=== PATIENT | male | born 1945 | race Caucasian/White ===

== ENCOUNTER 2016-10-30 16:43 | Emergency (ER) | payer OTHER ==
[~2016-10-30 16:43] MED LIST: ACETAMINOPHEN PO; ADVAIR DISKU1 INH; ALFUZOSIN HCL E10 MG PO; AMLODIPINE BESY10 MG PO; ASPIRIN 81 LOW81 MG PO; ATENOLOL100 MG PO; ATORVASTATIN CA20 MG PO; CODEINE PO; CYCLOBENZAPRINE10 MG PO; FINASTERIDE5 MG PO; FLOMAX0.4 MG PO; FUROSEMIDE20 MG PO; LEVOFLOXACIN500 MG PO; LISINOPRIL10 MG PO; NEURONTIN300 MG PO; OMEPRAZOLE40 MG PO; PRAZOSIN HCL1 MG PO; PROZAC20 MG PO; SYMBICORT1 AE1; TYLENOL/CODEINE #3 PO; WELLBUTRIN75 MG PO
--- NOTE | 2016-10-30 18:50 | DIAGNOSTIC IMAGING REPORT ---
PROCEDURE: XR CHEST 1 VIEW INDICATION: EPIGASTRIC PAIN TECHNIQUE: Portable AP view (1810 hours). COMPARISON: Compared to chest x-ray and 10/07/2016 and 03/28/2016. FINDINGS: Lungs are clear. Heart is of normal size. Tortuous and ectatic aortic arch and tortuous descending thoracic aorta are unchanged. Moderate degenerate change of the left glenohumeral joint (partially visualized). IMPRESSION: 1. Negative chest.
--- NOTE | 2016-10-30 20:03 | DIAGNOSTIC IMAGING REPORT ---
PROCEDURE: CT HEAD WITHOUT CONTRAST INDICATION: HEADACHE TECHNIQUE: Noncontrast axial images with sagittal and coronal reformations. COMPARISON: None. FINDINGS: Allowing for mild motion, there is moderate old small vessel disease with mild atrophic changes. No evidence of acute process or hemorrhage. Carotid and vertebral vascular calcifications. Sinuses and mastoids are normal. IMPRESSION: 1. Moderate old small vessel disease. 2. Otherwise negative head CT. No evidence of acute process. 3. Findings discussed with Dr. Lc Calderón at [address] scans at this facility use dose modulation, iterative reconstruction, and/or weight-based dosing when appropriate to reduce radiation dose to as low as reasonably achievable.
--- NOTE | 2016-10-30 20:03 | DIAGNOSTIC IMAGING REPORT ---
PROCEDURE: CT CERVICAL SPINE W/O CONTRAST INDICATION: Neck pain. TECHNIQUE: Noncontrast axial images with sagittal and coronal reformations. COMPARISON: Compared to CT cervical spine on 06/23/2013. FINDINGS: C1-2: Mild to moderate degenerative changes. C2-3: Moderately chronically bulging disc with moderate left facet disease results in moderate narrowing the left neural foramen. No change. C3-4: Mildly chronically bulging disc with mild narrowing of the neural foramina. C4-5: Mildly chronically bulging disc and facet disease with mild narrowing of the neural foramina. C5-6: Mild facet disease. C6-7: Mildly chronically bulging disc and facet disease with mild narrowing of the neural foramina. C7-T1: Mild facet disease. Marked calcified atheromatous changes of the carotid bifurcations (no change). IMPRESSION: 1. Moderate degenerative changes cervical spine. 2. No change. No evidence of acute process or fracture. 3. Marked calcified atheromatous changes of the carotid bifurcations. (Previously documented). 4. Findings discussed with Dr. Calderón. All CT scans at this facility use dose modulation, iterative reconstruction, and/or weight-based dosing when appropriate to reduce radiation dose to as low as reasonably achievable.
--- NOTE | 2016-10-30 20:19 | DIAGNOSTIC IMAGING REPORT ---
PROCEDURE: CT ABD/PELVIS WITH CONTRAST INDICATION: Abdominal and epigastric pain. TECHNIQUE: 75 ml of Isovue 300 (one half-dose) were injected intravenously and axial images were obtained of the entire abdomen and pelvis with sagittal and coronal reformations. COMPARISON: Comparison is made to CT abdomen and pelvis on 03/09/2015. FINDINGS: ABDOMEN: Status post aortobifemoral vascular stent for a 5.5 cm abdominal aortic aneurysm (previously 6.2 cm). Gallbladder, liver (stable dystrophic calcification), spleen, pancreas, and kidneys (multiple renal cysts) are normal. There are bilateral adrenal nodules which appears stable (right 3.1 cm, left 2.7 cm). Small hiatal hernia. Bowel pattern is otherwise normal, including appendix. There is a 70% old compression fracture of the T12 vertebral body with mild to moderate degenerative changes of the lumbar spine. PELVIS: Moderate generalized mucosal thickening of the urinary bladder. Mild enlargement prostate (4.4 cm). free fluid. IMPRESSION: 1. Status post aortoiliac vascular stent with decreasing size of abdominal aortic aneurysm now measuring 5.5 cm (previously 6.2 cm). 2. Small hiatal hernia. 3. Stable bilateral adrenal nodules. 4. Mild enlargement prostate (4.4 cm) with moderate generalized mucosal thickening of the urinary bladder. 5. Findings discussed with Dr. Lc Calderón. All CT scans at this facility use dose modulation, iterative reconstruction, and/or weight-based dosing when appropriate to reduce radiation dose to as low as reasonably achievable.
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
--- NOTE | 2016-10-30 21:16 | ED NURSING NOTES ---
Clinical Report - Nurses [facility] [address] [place] [address] 10/30/2016 16:43 [id number] Triage time 16:53 Oct 30 2016. Acuity: LEVEL 3. Chief Complaint: HEADACHE. Alert. KAYLEE COMA SCORE: Kaylee Coma Scale: 15- eyes open spontaneously (4); best verbal response- oriented x 4 (5); best motor response- obeys commands (6). --17:02 Reginald Good R.N. 16:53 10/30/16. BP: 200/103. HR: 61. RR: 20 (irregular). O2 saturation: 99% on room air. Temp: 99.3 F (oral). Pain level now: 10/10. Additional comments: Kidneys, SHIELDS. --17:02 Reginald Good R.N. Weight: 83.9 kg stated. Height/Length: 69 inches Per Patient. BMI: 27.3. --16:57 Reginald Good R.N. Medications AmLODIPine Besylate Oral. Atenolol Oral. Atorvastatin Calcium Oral. BuPROPion HCl Oral. --16:57 Reginald Good R.N. Codeine Sulfate Oral. Cyclobenzaprine HCl Oral. Furosemide Oral. Gabapentin Oral. Lisinopril Oral. Omeprazole Oral. Prazosin HCl Oral. PROzac Oral. --16:57 Reginald Good R.N. Allergies No Known Drug Allergy. --16:57 Reginald Good R.N. History Arrived by private vehicle. Historian: patient. Accompanied by spouse. Primary physician (Nolvia Morris). ( SHIELDS associated with N?\/V and increased tremors.). This started today. Patient was last known well (yesterday). Onset. (about 7 hours ago). He has had nausea, vomiting and weakness. ( SHIELDS). Treatment BIG DATA LEAD: None. PAST MEDICAL HX: Headaches. Immunizations: up-to-date. ( Tremors). SOCIAL HX: Former smoker, end date 05/2016. No alcohol use or drug use. No recent travel. No infectious disease exposure. ABUSE ASSESSMENT: No report of abuse. NUTRITIONAL RISK ASSESSMENT: The nutritional risk assessment revealed no deficiencies. FUNCTIONAL ASSESSMENT: Functional assessment: no impairments noted. LEARNING NEEDS ASSESSMENT: The learning needs assessment revealed no barriers. FALL RISK ASSESSMENT: Fall risk assessment completed. Risk factors identified include nausea and patient age greater than 65 years. SKIN INTEGRITY ASSESSMENT: Skin integrity risk assessment completed. No skin integrity risk identified. --17:02 Reginald Good R.N. Interventions ID band on patient. To treatment room. --17:02 Reginald Good R.N. PHYSICAL ASSESSMENT To room via wheelchair. GENERAL / NEURO / PSYCH: Alert. Oriented X 4. Speech within normal limits. RESPIRATORY: Respirations not labored. CVS: Capillary refill less than 2 seconds. GI / : Abdominal tenderness in the right lower quadrant. SKIN: Skin is warm and dry. --17:03 Reginald Good R.N. NURSING PROGRESS NOTES Patient gowned. Reassurance given. Lights dimmed. Patient identifiers checked. Call light placed in reach. Side rails up x 1. Bed placed in lowest position. Brakes of bed on. Patient ready for evaluation- chart flagged and ED physician notified. --17:04 Reginald Good R.N. 17:16 10/30/16. BP: 196/101. --17:17 Reginald Good R.N. 18:10 10/30/2016 Site #1 started via IV in the left with an 20g angiocath using a topical anesthetic, with aseptic technique and good blood return; two attempts. Blood drawn: rainbow set. Labeled in the presence of the patient and sent to the lab. Saline lock flushed with 10 mL saline. --18:23 Reginald Good R.N. 18:24 10/30/2016 Zofran (Ondansetron HCl) IVP 4 mg given over 2 minute(s) via site #1. Allergies verified and confirmed 5 rights. IV patency established. IV site checked: no pain, redness, or swelling. IV flushed thoroughly pre- and post-medication administration. IVP given by RN. --18:35 Reginald Good R.N. 18:31 10/30/2016 Dilaudid (HYDROmorphone HCl PF) IVP 0.5 mg given over 2 minute(s) via site #1. Allergies verified, confirmed 5 rights and sedative warning given to the patient. IV patency established. IV site checked: no pain, redness, or swelling. IV flushed thoroughly pre- and post-medication administration. IVP given by RN. --18:36 Reginald Good R.N. 18:55 10/30/16. Patient transported to CT by stretcher with tech. --19:17 Reginald Good R.N. 19:10 10/30/16. Patient returned from CT by stretcher with tech. --19:20 Reginald Good R.N. 19:00 10/30/16. BP: 189/97. HR: 63. RR: 16. O2 saturation: 96% on room air. Pain level now: . --19:21 Reginald Good R.N. 20:51 10/30/2016 Dilaudid (HYDROmorphone HCl PF) IVP 0.5 mg given over 2 minute(s) via site #1. Allergies verified, confirmed 5 rights and sedative warning given to the patient. IV patency established. IV site checked: no pain, redness, or swelling. IV flushed thoroughly pre- and post-medication administration. --20:54 Reginald Dave R.N. 20:54 10/30/16. BP: 188/96. HR: 63. RR: 12. O2 saturation: 98% on room air. --20:55 Reginald Dave R.N. The patient is calm and resting quietly. GENERAL / NEURO / PSYCH: Alert. Oriented X 4. RESPIRATORY: No respiratory distress. SKIN: Skin is warm and dry. Skin color within normal limits. --20:55 Reginald Dave R.N. 21:17 10/30/2016 Site #1 removed upon admission. Catheter intact. Pressure dressing and bandaid applied. --21:32 Reginald Good R.N. DISPOSITION / DISCHARGE 21:10/30/16. BP: 188/96. HR: 85. RR: 12. O2 saturation: 99% on room air. Temp: 98.9 F (oral). Pain level now: 11/18. --21:36 Reginald Good R.N. Departure time: 2119. --21:36 Reginald Good R.N. 21:20. Condition at departure: improved. No learning barriers present. Discharge instructions provided and reviewed with the patient. Reviewed medication(s) (prescription given to pt). Reviewed referral to family practice. Patient verbalized understanding. Written instructions provided in [place]. The patient was discharged by the physician. He was discharged home and accompanied by spouse. He left the Emergency Department ambulatory and via private vehicle. Spouse driving. --21:38 Reginald Good R.N. Locked/Released at 10/30/2016 21:39 by Reginald Good R.N.
--- NOTE | 2016-10-30 21:16 | ED ORDER SUMMARY ---
..... Patient: ISABELLA RITCHIE JR OrderSheet [facility] VisitID: [id number] [place] [address] 70y, M Registration Date/Time: 10/30/2016 ORDER SHEET Weight: 83.9 kg (stated) Allergies: No Known Drug Allergy GENERAL ORDERS: Cardiac Panel Stat (17:59 10/30/2016 Matt VICTORIA) (Ack 18:00 LMuller) (18:21 Sandra R.N.) (18:22 LMuller) CRP Urgent (17:59 10/30/2016 Matt VICTORIA) (Ack 18:00 LMuller) (18:21 Sandra R.N.) (18:22 LMuller) PCT (Procalcitonin) Urgent (17:59 10/30/2016 Matt VICTORIA) (Ack 18:00 LMuller) (18:21 Sandra R.N.) (18:22 LMuller) Chest 1V Urgent (18:00 10/30/2016 Matt VICTORIA) (Ack 18:05 LMuller) (18:21 Sandra R.N.) Operations Manager Station (Continuous) (18:00 10/30/2016 Matt VICTORIA) (Ack 18:05 LMuller) (18:21 Sandra R.N.) CT Head wo Cont Urgent (18:00 10/30/2016 Matt VICTORIA) (Ack 18:05 LMuller) (19:03 RFay) CT Cervical Spine wo Cont Urgent (18:00 10/30/2016 Matt VICTORIA) (Ack 18:05 LMuller) (19:03 RFay) UA-Culture if indicated Urgent (18:10/30/2016 Matt VICTORIA) (Ack 18:05 LMuller) (18:21 Sandra R.N.) PT with INR Urgent (18:10/30/2016 Matt VICTORIA) (Ack 18:05 LMuller) (18:21 Sandra R.N.) (18:22 LMuller) PTT Urgent (18:10/30/2016 Matt VICTORIA) (Ack 18:05 LMuller) (18:21 omandaniel R.N.) (18:22 LMuller) TSH Urgent (18:01 10/30/2016 Matt VICTORIA) (Ack 18:05 LMuller) (18:21 omanelli R.N.) (18:22 LMuller) Pulse oximeter (18:01 10/30/2016 Matt VICTORIA) (Ack 18:05 LMuller) (18:21 Sandra R.N.) EKG - ER Stat (18:01 10/30/2016 Matt VICTORIA) (Ack 18:05 LMuller) (18:32 LMuller) CT Abd/Pel w Cont (No) (pending) Urgent (18:02 10/30/2016 Matt VICTORIA) (Ack 18:05 LMuller) (19:24 RFay) Lipase Urgent (19:57 10/30/2016 Matt VICTORIA) (20:05 [facility] Amylase Urgent (19:57 10/30/2016 Matt VICTORIA) (20:05 [facility] ER Boat Wrapper) MEDICATION ORDERS: IV FLUIDS: IV Saline Lock (18:01 10/30/2016 Matt VICTORIA) (18:23 Sandra R.N.) Zofran IV 4 mg (NOW) (18:02 10/30/2016 Matt VICTORIA) (18:35 Sandra R.N.) Dilaudid IV 0.5 mg (NOW) (18:02 10/30/2016 Matt VICTORIA) (18:36 Sandra R.N.) Dilaudid IV 0.5 mg (NOW) (19:50 10/30/2016 Matt VICTORIA) (Ack 20:49 JQuivey R.N.) (20:54 JQuivey R.N.) ORDER SHEET NOTES: [Electronically signed by Reginald Good R.N. (21:39 10/30/2016)] [Electronically signed by Lc Calderón MD (15:48 10/31/2016)] [Electronically locked/signed by Reginald Good R.N. (21:39 10/30/2016)]
--- NOTE | 2016-10-30 21:16 | ED ORDER SUMMARY ---
..... Patient: ISABELLA RITCHIE JR OrderSheet [facility] VisitID: [id number] [place] [address] 70y, M Registration Date/Time: 10/30/2016 ORDER SHEET Weight: 83.9 kg (stated) Allergies: No Known Drug Allergy GENERAL ORDERS: Cardiac Panel Stat (17:59 10/30/2016 Matt VICTORIA) (Ack 18:00 LMuller) (18:21 Sandra R.N.) (18:22 LMuller) CRP Urgent (17:59 10/30/2016 Matt VICTORIA) (Ack 18:00 LMuller) (18:21 Sandra R.N.) (18:22 LMuller) PCT (Procalcitonin) Urgent (17:59 10/30/2016 Matt VICTORIA) (Ack 18:00 LMuller) (18:21 Sandra R.N.) (18:22 LMuller) Chest 1V Urgent (18:00 10/30/2016 Matt VICTORIA) (Ack 18:05 LMuller) (18:21 Sandra R.N.) Linux Devops Engineer (Continuous) (18:00 10/30/2016 Matt VICTORIA) (Ack 18:05 LMuller) (18:21 Sandra R.N.) CT Head wo Cont Urgent (18:00 10/30/2016 Matt VICTORIA) (Ack 18:05 LMuller) (19:03 RFay) CT Cervical Spine wo Cont Urgent (18:00 10/30/2016 Matt VICTORIA) (Ack 18:05 LMuller) (19:03 RFay) UA-Culture if indicated Urgent (18:10/30/2016 Matt VICTORIA) (Ack 18:05 LMuller) (18:21 Sandra R.N.) PT with INR Urgent (18:10/30/2016 Matt VICTORIA) (Ack 18:05 LMuller) (18:21 Sandra R.N.) (18:22 LMuller) PTT Urgent (18:10/30/2016 Matt VICTORIA) (Ack 18:05 LMuller) (18:21 omandaniel R.N.) (18:22 LMuller) TSH Urgent (18:01 10/30/2016 Matt VICTORIA) (Ack 18:05 LMuller) (18:21 omanelli R.N.) (18:22 LMuller) Pulse oximeter (18:01 10/30/2016 Matt VICTORIA) (Ack 18:05 LMuller) (18:21 Sandra R.N.) EKG - ER Stat (18:01 10/30/2016 Matt VICTORIA) (Ack 18:05 LMuller) (18:32 LMuller) CT Abd/Pel w Cont (No) (pending) Urgent (18:02 10/30/2016 Matt VICTORIA) (Ack 18:05 LMuller) (19:24 RFay) Lipase Urgent (19:57 10/30/2016 Matt VICTORIA) (20:[facility] Amylase Urgent (19:57 10/30/2016 Matt VICTORIA) (20:05 [facility] ER Roof Mechanic) MEDICATION ORDERS: IV FLUIDS: IV Saline Lock (18:01 10/30/2016 Matt VICTORIA) (18:23 Sandra R.N.) Zofran IV 4 mg (NOW) (18:02 10/30/2016 Matt VICTORIA) (18:35 Sandra R.N.) Dilaudid IV 0.5 mg (NOW) (18:02 10/30/2016 Matt VICTORIA) (18:36 Sandra R.N.) Dilaudid IV 0.5 mg (NOW) (19:50 10/30/2016 Matt VICTORIA) (Ack 20:49 JQuivey R.N.) (20:54 JQuivey R.N.) ORDER SHEET NOTES: [Electronically signed by Reginald Good R.N. (21:39 10/30/2016)] [Electronically signed by Lc Calderón MD (15:48 10/31/2016)] [Electronically locked/signed by Reginald Good R.N. (21:39 10/30/2016)]
--- NOTE | 2016-10-31 15:49 | ED MAR SUMMARY ---
..... Medication Administration Record [address] [place] [address] Patient: ISABELLA RITCHIE Visit ID: [id number] 70y, M Weight: 83.9 kg Height/Length: 69 in BMI: 27.3 ALLERGIES: No Known Drug Allergy Given 18:24 10/30/2016 Reginald Good R.N. Medication Administered: ZOFRAN [IVP] (ONDANSETRON HCL), Dose: 4 mg IVP over 2 minute(s), Site: #1 left. Medication Ordered: Zofran IV 4 mg (NOW). Given 18:31 10/30/2016 Reginald Good R.N. Medication Administered: DILAUDID [IVP] (HYDROMORPHONE HCL PF), Dose: 0.5 mg IVP over 2 minute(s), Site: #1 left. Medication Ordered: Dilaudid IV 0.5 mg (NOW). Given 20:51 10/30/2016 Reginald Dave R.N. Medication Administered: DILAUDID [IVP] (HYDROMORPHONE HCL PF), Dose: 0.5 mg IVP over 2 minute(s), Site: #1 left. Medication Ordered: Dilaudid IV 0.5 mg (NOW).
--- NOTE | 2016-10-31 15:49 | ED MED RECONCILIATION SUMMARY ---
Patient: ISABELLA RITCHIE JR Medication Reconciliation Report [facility] VisitID: [id number] [address] [place] [address] 70y, M Registration Date/Time: 10/30/2016 Weight: 83.9 kg Height/Length: 69 in. BMI: 27.3 ALLERGIES: No Known Drug Allergy The patient's Home Medications are listed below: CONTINUE TAKING THE FOLLOWING MEDICATIONS: AmLODIPine Besylate Oral Atenolol Oral Atorvastatin Calcium Oral BuPROPion HCl Oral Codeine Sulfate Oral Cyclobenzaprine HCl Oral Furosemide Oral Gabapentin Oral Lisinopril Oral Omeprazole Oral Prazosin HCl Oral PROzac Oral The source(s) of the original Home Medication information: Not obtained. The following Medications were given to the patient in the Emergency Department: Zofran [IVP] IVP 4 mg, administered: 10/30/2016 6:24:00 PM Dilaudid [IVP] IVP 0.5 mg, administered: 10/30/2016 6:31:00 PM Dilaudid [IVP] IVP 0.5 mg, administered: 10/30/2016 8:51:00 PM The following Medications were prescribed to the patient: Oxycodone/APAP 5 mg/325 mg: take 1-2 tablets orally every 4 hours as needed for pain. Dispense twenty-five (25). No refill. -- Lc Calderón MD
--- NOTE | 2016-10-31 15:49 | ED DISCHARGE INSTRUCTIONS ---
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 INSTRUCTIONS Apply moist heat for 15-20 minutes three times a day for three days until better. (to neck). No strenuous activity. Rest. Warnings: Further evaluation is necessary. SEDATIVE MEDICATION: You were given sedative medication during your visit. Do not drive or operate dangerous machinery. GENERAL WARNINGS: Return or contact your physician immediately if your condition worsens or changes unexpectedly, if not improving as expected, or if other problems arise. Your Current Medications: CONTINUE TAKING THE FOLLOWING MEDICATIONS: AmLODIPine Besylate Oral. Atenolol Oral. Atorvastatin Calcium Oral. BuPROPion HCl Oral. Codeine Sulfate Oral. Cyclobenzaprine HCl Oral. Furosemide Oral. Gabapentin Oral. Lisinopril Oral. Omeprazole Oral. Prazosin HCl Oral. PROzac Oral. Prescription Medications: Oxycodone/APAP 5 mg/325 mg: take 1-2 tablets orally every 4 hours as needed for pain. Dispense twenty-five (25). No refill. Follow-up: Follow up with your doctor in two days. Call for the next available appointment. Understanding of the discharge instructions verbalized by patient and family. Discharge instructions reviewed with and understanding was verbalized by spouse. ADDITIONAL INFORMATION Oxycodone Hydrochloride, Acetaminophen Oral tablet What is this medicine? ACETAMINOPHEN; OXYCODONE (a set a CHRISTI rafaela fen; ox i KOE done) is a pain reliever. It is used to treat mild to moderate pain. How should I use this medicine? Take this medicine by mouth with a full glass of water. Follow the directions on the prescription label. Take your medicine at regular intervals. Do not take your medicine more often than directed. Talk to your marketing budget analyst regarding the use of this medicine in children. Special care may be needed. Patients over 65 years old may have a stronger reaction and need a smaller dose. What side effects may I notice from receiving this medicine? Side effects that you should report to your doctor or health memory care director as soon as possible: allergic reactions like skin rash, itching or hives, swelling of the face, lips, or tongue breathing difficulties, wheezing confusion light headedness or fainting spells severe stomach pain yellowing of the skin or the whites of the eyes Side effects that usually do not require medical attention (report to your doctor or health memory care director if they continue or are bothersome): dizziness drowsiness nausea vomiting What may interact with this medicine? alcohol antihistamines barbiturates like amobarbital, butalbital, butabarbital, methohexital, pentobarbital, phenobarbital, thiopental, and secobarbital benztropine drugs for bladder problems like solifenacin, trospium, oxybutynin, tolterodine, hyoscyamine, and methscopolamine drugs for breathing problems like ipratropium and tiotropium drugs for certain stomach or intestine problems like propantheline, homatropine methylbromide, glycopyrrolate, atropine, belladonna, and dicyclomine general anesthetics like etomidate, ketamine, nitrous oxide, propofol, desflurane, enflurane, halothane, isoflurane, and sevoflurane medicines for depression, anxiety, or psychotic disturbances medicines for sleep muscle relaxants naltrexone narcotic medicines (opiates) for pain phenothiazines like perphenazine, thioridazine, chlorpromazine, mesoridazine, fluphenazine, prochlorperazine, promazine, and trifluoperazine scopolamine tramadol trihexyphenidyl What if I miss a dose? If you miss a dose, take it as soon as you can. If it is almost time for your next dose, take only that dose. Do not take double or extra doses. Where should I keep my medicine? Keep out of the reach of children. This medicine can be abused. Keep your medicine in a safe place to protect it from theft. Do not share this medicine with anyone. Selling or giving away this medicine is dangerous and against the law. Store at room temperature between 20 and 25 degrees C (68 and 77 degrees F). Keep container tightly closed. Protect from light. This medicine may cause accidental overdose and if it is taken by other adults, children, or pets. Flush any unused medicine down the toilet to reduce the chance of harm. Do not use the medicine after the expiration date. What should I tell my health care provider before I take this medicine? They need to know if you have any of these conditions: brain tumor Crohn's disease, inflammatory bowel disease, or ulcerative colitis drink more than 3 alcohol containing drinks per day drug abuse or addiction head injury heart or circulation problems kidney disease or problems going to the bathroom liver disease lung disease, asthma, or breathing problems an unusual or allergic reaction to acetaminophen, oxycodone, other opioid analgesics, other medicines, foods, dyes, or preservatives or trying to get breast-feeding What should I watch for while using this medicine? Tell your doctor or health memory care director if your pain does not go away, if it gets worse, or if you have new or a different type of pain. You may develop tolerance to the medicine. Tolerance means that you will need a higher dose of the medication for pain relief. Tolerance is normal and is expected if you take this medicine for a long time. Do not suddenly stop taking your medicine because you may develop a severe reaction. Your body becomes used to the medicine. This does NOT mean you are addicted. Addiction is a behavior related to getting and using a drug for a non-medical reason. If you have pain, you have a medical reason to take pain medicine. Your doctor will tell you how much medicine to take. If your doctor wants you to stop the medicine, the dose will be slowly lowered over time to avoid any side effects. You may get drowsy or dizzy. Do not drive, use machinery, or do anything that needs mental alertness until you know how this medicine affects you. Do not stand or sit up quickly, especially if you are an older patient. This reduces the risk of dizzy or fainting spells. Alcohol may interfere with the effect of this medicine. Avoid alcoholic drinks. There are different types of narcotic medicines (opiates) for pain. If you take more than one type at the same time, you may have more side effects. Give your health care provider a list of all medicines you use. Your doctor will tell you how much medicine to take. Do not take more medicine than directed. Call emergency for help if you have problems breathing. The medicine will cause constipation. Try to have a bowel movement at least every 2 to 3 days. If you do not have a bowel movement for 3 days, call your doctor or health memory care director. Do not take Tylenol (acetaminophen) or medicines that have acetaminophen with this medicine. Too much acetaminophen can be very dangerous. Many nonprescription medicines contain acetaminophen. Always read the labels carefully to avoid taking more acetaminophen. You have been given the following additional information: Oxycodone Hydrochloride, Acetaminophen Oral tablet No strenuous activity. Rest. (Electronically signed by Lc Calderón MD 10/31/2016 15:48)
--- NOTE | 2016-10-31 15:49 | ED MED RECONCILIATION SUMMARY ---
Patient: ISABELLA RITCHIE JR Medication Reconciliation Report [facility] VisitID: [id number] [address] [place] [address] 70y, M Registration Date/Time: 10/30/2016 Weight: 83.9 kg Height/Length: 69 in. BMI: 27.3 ALLERGIES: No Known Drug Allergy The patient's Home Medications are listed below: CONTINUE TAKING THE FOLLOWING MEDICATIONS: AmLODIPine Besylate Oral Atenolol Oral Atorvastatin Calcium Oral BuPROPion HCl Oral Codeine Sulfate Oral Cyclobenzaprine HCl Oral Furosemide Oral Gabapentin Oral Lisinopril Oral Omeprazole Oral Prazosin HCl Oral PROzac Oral The source(s) of the original Home Medication information: Not obtained. The following Medications were given to the patient in the Emergency Department: Zofran [IVP] IVP 4 mg, administered: 10/30/2016 6:24:00 PM Dilaudid [IVP] IVP 0.5 mg, administered: 10/30/2016 6:31:00 PM Dilaudid [IVP] IVP 0.5 mg, administered: 10/30/2016 8:51:00 PM The following Medications were prescribed to the patient: Oxycodone/APAP 5 mg/325 mg: take 1-2 tablets orally every 4 hours as needed for pain. Dispense twenty-five (25). No refill. -- Lc Calderón MD
--- NOTE | 2016-10-31 15:49 | ED MAR SUMMARY ---
..... Medication Administration Record [facility] [address] [place] [address] Patient: ISABELLA RITCHIE Visit ID: [id number] 70y, M Weight: 83.9 kg Height/Length: 69 in BMI: 27.3 ALLERGIES: No Known Drug Allergy Given 18:24 10/30/2016 Reginald Good R.N. Medication Administered: ZOFRAN [IVP] (ONDANSETRON HCL), Dose: 4 mg IVP over 2 minute(s), Site: #1 left. Medication Ordered: Zofran IV 4 mg (NOW). Given 18:31 10/30/2016 Reginald Good R.N. Medication Administered: DILAUDID [IVP] (HYDROMORPHONE HCL PF), Dose: 0.5 mg IVP over 2 minute(s), Site: #1 left. Medication Ordered: Dilaudid IV 0.5 mg (NOW). Given 20:51 10/30/2016 Reginald Dave R.N. Medication Administered: DILAUDID [IVP] (HYDROMORPHONE HCL PF), Dose: 0.5 mg IVP over 2 minute(s), Site: #1 left. Medication Ordered: Dilaudid IV 0.5 mg (NOW).
--- NOTE | 2016-10-31 15:49 | ED DISCHARGE INSTRUCTIONS ---
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 INSTRUCTIONS Apply moist heat for 15-20 minutes three times a day for three days until better. (to neck). No strenuous activity. Rest. Warnings: Further evaluation is necessary. SEDATIVE MEDICATION: You were given sedative medication during your visit. Do not drive or operate dangerous machinery. GENERAL WARNINGS: Return or contact your physician immediately if your condition worsens or changes unexpectedly, if not improving as expected, or if other problems arise. Your Current Medications: CONTINUE TAKING THE FOLLOWING MEDICATIONS: AmLODIPine Besylate Oral. Atenolol Oral. Atorvastatin Calcium Oral. BuPROPion HCl Oral. Codeine Sulfate Oral. Cyclobenzaprine HCl Oral. Furosemide Oral. Gabapentin Oral. Lisinopril Oral. Omeprazole Oral. Prazosin HCl Oral. PROzac Oral. Prescription Medications: Oxycodone/APAP 5 mg/325 mg: take 1-2 tablets orally every 4 hours as needed for pain. Dispense twenty-five (25). No refill. Follow-up: Follow up with your doctor in two days. Call for the next available appointment. Understanding of the discharge instructions verbalized by patient and family. Discharge instructions reviewed with and understanding was verbalized by spouse. ADDITIONAL INFORMATION Oxycodone Hydrochloride, Acetaminophen Oral tablet What is this medicine? ACETAMINOPHEN; OXYCODONE (a set a CHRISTI rafaela fen; ox i KOE done) is a pain reliever. It is used to treat mild to moderate pain. How should I use this medicine? Take this medicine by mouth with a full glass of water. Follow the directions on the prescription label. Take your medicine at regular intervals. Do not take your medicine more often than directed. Talk to your collar setter regarding the use of this medicine in children. Special care may be needed. Patients over 65 years old may have a stronger reaction and need a smaller dose. What side effects may I notice from receiving this medicine? Side effects that you should report to your doctor or health wound care nurse as soon as possible: allergic reactions like skin rash, itching or hives, swelling of the face, lips, or tongue breathing difficulties, wheezing confusion light headedness or fainting spells severe stomach pain yellowing of the skin or the whites of the eyes Side effects that usually do not require medical attention (report to your doctor or health wound care nurse if they continue or are bothersome): dizziness drowsiness nausea vomiting What may interact with this medicine? alcohol antihistamines barbiturates like amobarbital, butalbital, butabarbital, methohexital, pentobarbital, phenobarbital, thiopental, and secobarbital benztropine drugs for bladder problems like solifenacin, trospium, oxybutynin, tolterodine, hyoscyamine, and methscopolamine drugs for breathing problems like ipratropium and tiotropium drugs for certain stomach or intestine problems like propantheline, homatropine methylbromide, glycopyrrolate, atropine, belladonna, and dicyclomine general anesthetics like etomidate, ketamine, nitrous oxide, propofol, desflurane, enflurane, halothane, isoflurane, and sevoflurane medicines for depression, anxiety, or psychotic disturbances medicines for sleep muscle relaxants naltrexone narcotic medicines (opiates) for pain phenothiazines like perphenazine, thioridazine, chlorpromazine, mesoridazine, fluphenazine, prochlorperazine, promazine, and trifluoperazine scopolamine tramadol trihexyphenidyl What if I miss a dose? If you miss a dose, take it as soon as you can. If it is almost time for your next dose, take only that dose. Do not take double or extra doses. Where should I keep my medicine? Keep out of the reach of children. This medicine can be abused. Keep your medicine in a safe place to protect it from theft. Do not share this medicine with anyone. Selling or giving away this medicine is dangerous and against the law. Store at room temperature between 20 and 25 degrees C (68 and 77 degrees F). Keep container tightly closed. Protect from light. This medicine may cause accidental overdose and if it is taken by other adults, children, or pets. Flush any unused medicine down the toilet to reduce the chance of harm. Do not use the medicine after the expiration date. What should I tell my health care provider before I take this medicine? They need to know if you have any of these conditions: brain tumor Crohn's disease, inflammatory bowel disease, or ulcerative colitis drink more than 3 alcohol containing drinks per day drug abuse or addiction head injury heart or circulation problems kidney disease or problems going to the bathroom liver disease lung disease, asthma, or breathing problems an unusual or allergic reaction to acetaminophen, oxycodone, other opioid analgesics, other medicines, foods, dyes, or preservatives or trying to get breast-feeding What should I watch for while using this medicine? Tell your doctor or health wound care nurse if your pain does not go away, if it gets worse, or if you have new or a different type of pain. You may develop tolerance to the medicine. Tolerance means that you will need a higher dose of the medication for pain relief. Tolerance is normal and is expected if you take this medicine for a long time. Do not suddenly stop taking your medicine because you may develop a severe reaction. Your body becomes used to the medicine. This does NOT mean you are addicted. Addiction is a behavior related to getting and using a drug for a non-medical reason. If you have pain, you have a medical reason to take pain medicine. Your doctor will tell you how much medicine to take. If your doctor wants you to stop the medicine, the dose will be slowly lowered over time to avoid any side effects. You may get drowsy or dizzy. Do not drive, use machinery, or do anything that needs mental alertness until you know how this medicine affects you. Do not stand or sit up quickly, especially if you are an older patient. This reduces the risk of dizzy or fainting spells. Alcohol may interfere with the effect of this medicine. Avoid alcoholic drinks. There are different types of narcotic medicines (opiates) for pain. If you take more than one type at the same time, you may have more side effects. Give your health care provider a list of all medicines you use. Your doctor will tell you how much medicine to take. Do not take more medicine than directed. Call emergency for help if you have problems breathing. The medicine will cause constipation. Try to have a bowel movement at least every 2 to 3 days. If you do not have a bowel movement for 3 days, call your doctor or health wound care nurse. Do not take Tylenol (acetaminophen) or medicines that have acetaminophen with this medicine. Too much acetaminophen can be very dangerous. Many nonprescription medicines contain acetaminophen. Always read the labels carefully to avoid taking more acetaminophen. You have been given the following additional information: Oxycodone Hydrochloride, Acetaminophen Oral tablet No strenuous activity. Rest. (Electronically signed by Lc Calderón MD 10/31/2016 15:48)
== END 2016-10-30 21:20 | disposition home or self-care (01) ==
LOC: ED SRH 16:43
DX: M50.30 Other cervical disc degeneration, unspecified cervical region (principal); R51 Headache; K29.70 Gastritis, unspecified, without bleeding; I10 Essential (primary) hypertension; E11.9 Type 2 diabetes mellitus without complications; J44.9 Chronic obstructive pulmonary disease, unspecified; Z87.891 Personal history of nicotine dependence
CPT/HCPCS: 90004; 90100; 90616; 91585; 92235; 92530; 92610; 92720; 93004; 93140; 94001; 94060; 95059